=== PATIENT | female | born 2000 | race Caucasian/White ===

== ENCOUNTER 2024-11-30 00:16 | Emergency (ER) | payer OTHER, SELFPAY ==
[2024-11-30 00:16] VITALS: BMI 35.4
[2024-11-30 00:21] VITALS: BP 146/104
[2024-11-30 00:41] VITALS: BP 136/84
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
[2024-11-30 01:59] VITALS: BP 136/78
== END 2024-11-30 02:02 | disposition home or self-care (01) ==
LOC: EMR 00:16
PROVIDERS: EMERGENCY PHYSICIAN Emergency Medicine
DX: T59.811A Toxic effect of smoke, accidental (unintentional), initial encounter (principal); J68.0 Bronchitis and pneumonitis due to chemicals, gases, fumes and vapors
CPT/HCPCS: 99283